=== PATIENT | female | born 1960 | race Caucasian/White ===

== ENCOUNTER 2018-01-01 10:08 | Outpatient (CLI) | payer OTHER ==
[~2018-01-01] VITALS: Ht 162.6 cm; Wt 73.5 kg
[~2018-01-01 10:08] MED LIST: KETO10TA2 PO; OSEL75CA PO; ULTRAM50 MG PO; ZESTRIL2.5 MG; ZOCOR5 MG
== END 2018-01-01 10:15 | disposition home or self-care (01) ==
LOC: OFIC 805 10:08
DX: G47.09 Other insomnia (principal); H93.12 Tinnitus, left ear; H61.21 Impacted cerumen, right ear